=== PATIENT | male | born 1950 | race Caucasian/White ===

== ENCOUNTER → 2017-07-08 | Outpatient (CLI) | payer MEDICARE | END | disposition home or self-care (01) | LOC: GMAJ 10:36 | PROVIDERS: ATTEND Family Medicine | DX: Z12.5 Encounter for screening for malignant neoplasm of prostate (principal) ==

== ENCOUNTER → 2017-12-22 | Outpatient (CLI) | payer MEDICARE | LOC: GMAJ 10:31 | PROVIDERS: ATTEND Family Medicine | DX: I10 Essential (primary) hypertension (principal) ==

== ENCOUNTER → 2018-07-06 | Outpatient (CLI) | payer MEDICARE ==
--- NOTE | 2018-07-07 14:35 | CT ---
EXAM DESCRIPTION: CTA Neck (accession [id number]), CTA Head (accession [id number]) CLINICAL HISTORY: BRAIN STEM STROKE COMPARISON: None. TECHNIQUE: Postcontrast CTA images of the head and neck are obtained. Three-D MIP reconstructed images of the arterial vasculature are performed. This exam was performed according to our departmental dose-optimization program, which includes automated exposure control, adjustment of the mA and/or kV according to patient size and/or use of iterative reconstruction technique . FINDINGS: CTA neck: Thoracic aortic arch is unremarkable. There is normal origin of the great vessels from the aorta. No subclavian artery stenosis is seen. Dense contrast in the right subclavian vein limits visualization of the right subclavian artery. The proximal right common carotid artery is also not well seen. The remainder of the right common carotid arteries unremarkable. There is mild eccentric partly calcified plaque in the carotid bulb extending to the proximal right ICA and ECA without vessel narrowing. Tortuosity of the right internal carotid artery seen primarily at the skull base without significant plaque or vessel narrowing. Tortuosity of the left common carotid artery is seen. There is minimal concentric partially calcified plaque in the carotid bulb to proximal left ICA without vessel narrowing. Moderate tortuosity of the mid left ICA seen without significant plaque or vessel narrowing. The external carotid arteries show no significant stenosis. Vertebral arteries are relatively codominant. No significant plaque or vessel narrowing is seen in the vertebral arteries. Soft tissues of the neck are unremarkable. No pathologic lymphadenopathy. Lung apices are unremarkable. Severe disc space narrowing at C5-6 is seen with uncovertebral joint hypertrophy and at least moderate bilateral foraminal encroachment. CTA HEAD: No significant plaque of the intracranial internal carotid arteries is seen. Normal branching of the major central intracranial arterial vasculature is seen without evidence of aneurysm, vascular malformation, or flow limiting stricture or stenosis. Basilar artery shows no significant plaque or vessel narrowing. Midline structures are not displaced. Sulci are age appropriate. There is no evidence of mass, mass effect, hydrocephalus, or acute intracranial hemorrhage. No abnormal extra-axial fluid collections are seen. There are no abnormal areas of enhancement. Visualized paranasal sinuses and mastoid air cells are unremarkable. IMPRESSION: Mild atherosclerotic disease of the carotid arteries without definite stenosis on CTA imaging. Moderate tortuosity of the internal carotid arteries is seen. No CTA evidence of high-grade stenosis of the basilar artery or intracranial internal carotid arteries. Unremarkable CTA of the head. Electronically signed by: Alexsander Franks MD 07/07/2018 2:33 PM [employer]
== END ==
LOC: CT 10:30
PROVIDERS: ATTEND Family Medicine
DX: G46.3 Brain stem stroke syndrome (principal); I65.23 Occlusion and stenosis of bilateral carotid arteries

== ENCOUNTER → 2019-06-22 | Outpatient (CLI) | payer MEDICARE | END | disposition home or self-care (01) | LOC: GMAJ 10:36 | PROVIDERS: ATTEND Family Medicine | DX: Z12.5 Encounter for screening for malignant neoplasm of prostate (principal) ==